=== PATIENT | female | born 1985 | race Caucasian/White ===

== ENCOUNTER → 2017-05-09 | Outpatient (REF) | payer SELFPAY ==
[2017-05-09 18:37] LABS: MEAN CORPUSCULAR HEMOGLOBIN 30.5 pg (27.0-33.0); MEAN CORPUSCULAR HGB CONC 35.4 g/dl (32.0-36.5); MEAN CORPUSCULAR VOLUME 86.4 fl (80.0-96.0); PLATELET COUNT, AUTOMATED 363 10^3/uL (150-450); RED CELL DISTRIBUTION WIDTH 11.8 % (11.5-14.5); WHITE BLOOD COUNT 10.5 10^3/uL (4.0-10.0)
[2017-05-09 19:17] LABS: HCG, SERUM QUANTITATIVE 34042 MIU/ML
[2017-05-11 10:27] LABS: HBsAg Prenatal NEGATIVE (NEGATIVE)
== END ==
LOC: M LAB REF 16:41
DX: O36.80X0 Pregnancy with inconclusive fetal viability, not applicable or unspecified (principal)

== ENCOUNTER → 2017-10-02 | Outpatient (CLI) | payer OTHER ==
[2017-10-02 14:22] LABS: HEMATOCRIT 32.8 % (36.0-47.0); HEMOGLOBIN 11.1 g/dl (12.0-15.5); MEAN CORPUSCULAR HEMOGLOBIN 31.2 pg (27.0-33.0); MEAN CORPUSCULAR HGB CONC 33.8 g/dl (32.0-36.5); MEAN CORPUSCULAR VOLUME 92.1 fl (80.0-96.0); PLATELET COUNT, AUTOMATED 285 10^3/uL (150-450); RED BLOOD COUNT 3.56 10^6/uL (4.00-5.40); RED CELL DISTRIBUTION WIDTH 13.1 % (11.5-14.5); WHITE BLOOD COUNT 10.6 10^3/uL (4.0-10.0)
[2017-10-02 15:25] LABS: GLUCOSE CHALLENGE TEST 1 HOUR 154 MG/DL (LESS THAN 140)
== END ==
LOC: M LAB 12:41
DX: Z34.02 Encounter for supervision of normal first pregnancy, second trimester (principal); Z3A.00 Weeks of gestation of pregnancy not specified
CPT/HCPCS: 82950

== ENCOUNTER → 2017-10-04 | Outpatient (CLI) | payer OTHER ==
[2017-10-04 08:43] LABS: GLUCOSE, FASTING 83 MG/DL (LESS THAN 95)
[2017-10-04 10:05] LABS: 1 HR GLUCOSE 123 MG/DL (LESS THAN 180)
[2017-10-04 10:49] LABS: 2 HR GLUCOSE 138 MG/DL (LESS THAN 155)
[2017-10-04 11:57] LABS: 3 HR GLUCOSE 96 MG/DL (LESS THAN 140)
== END ==
LOC: M LAB 07:39
DX: Z34.02 Encounter for supervision of normal first pregnancy, second trimester (principal)

== ENCOUNTER → 2017-11-27 | Outpatient (REF) | payer OTHER | LOC: M LAB REF 17:14 | DX: Z34.03 Encounter for supervision of normal first pregnancy, third trimester (principal); Z3A.00 Weeks of gestation of pregnancy not specified ==

== ENCOUNTER 2017-12-30 02:38 | Inpatient (IN) | payer OTHER ==
[2017-12-30 04:34] LABS: HEMATOCRIT 32.1 % (36.0-47.0); HEMOGLOBIN 10.8 g/dl (12.0-15.5); MEAN CORPUSCULAR HEMOGLOBIN 29.8 pg (27.0-33.0); MEAN CORPUSCULAR HGB CONC 33.6 g/dl (32.0-36.5); MEAN CORPUSCULAR VOLUME 88.7 fl (80.0-96.0); PLATELET COUNT, AUTOMATED 204 10^3/uL (150-450); RED BLOOD COUNT 3.62 10^6/uL (4.00-5.40); RED CELL DISTRIBUTION WIDTH 14.7 % (11.5-14.5); WHITE BLOOD COUNT 10.6 10^3/uL (4.0-10.0)
[2017-12-30] MEDS: LR 1,000 ML IV ×3 (05:46→15:27)
[2017-12-30] MEDS ORDERED: FENTANYL 2MCG/ML ROPIVACAINE 0.2% IN 0.9% NACL 200ML IVBAG As Ordered (05:58)
[2017-12-30] MEDS ORDERED: NALOXONE INJ 0.4 MG/1 ML VIAL (J2310) IV (07:45)
[2017-12-30] MEDS ORDERED: ePHEDrine SULFATE 25 MG/5 ML(5MG/ML) SYRINGE IV (07:45)
[2017-12-30] MEDS ORDERED: diphenhydrAMINE INJ 50MG/ML VIAL (J1200) IV (07:45)
[2017-12-30] MEDS ORDERED: LACTATED RINGER'S 1000 ML IV (07:45)
[2017-12-30] MEDS ORDERED: FENTANYL/ROPIVACAINE/NACL BAG 200 ML EPIDURAL (07:45)
[2017-12-30] MEDS ORDERED: EPIDURAL/PCA KEYS XX (07:45)
[2017-12-30] MEDS ORDERED: EPIDURAL COMMENT XX (07:45)
[2017-12-30] MEDS ORDERED: REFRIGERATOR IV KEYS XX (07:45)
[2017-12-30] MEDS: OXYTOCIN DRIP 30 UNITS in APPROPRIATE DILUENT 1 EA IV (10:06)
[2017-12-30] MEDS: ONDANSETRON 4MG/2ML VIAL (J2405) IV (11:53)
[2017-12-30] MEDS ORDERED: ACETAMINOPHEN 500 MG TAB PO (20:30)
[2017-12-30] MEDS: miSOPROStol 200 MCG TAB (S0191) PR (22:00)
[2017-12-30] MEDS ORDERED: MOM 30ML SUSPENSION UDC PO (22:00)
[2017-12-30] MEDS ORDERED: DOCUSATE SODIUM 100 MG CAP PO (22:00)
[2017-12-30] MEDS ORDERED: RHOGAM 300 MCG (1500 IU) INJ (J2790) IM (22:00)
[2017-12-30] MEDS: LIDOCAINE 1% MDV 20ML VIAL INFIL (22:00)
[2017-12-30] MEDS ORDERED: ANUSOL HC CREAM 30GM TOP (22:00)
[2017-12-30] MEDS ORDERED: MEASLES,MUMPS,RUBELLA VACCINE INJ (MMR-II) (90707) SC (22:00)
[2017-12-30] MEDS: METHYLERGONOVINE MALEATE 0.2 MG TAB PO (22:31)
[2017-12-31] MEDS: IBUPROFEN 100 MG/5 ML SUSP UDC DYE FREE PO ×3 (00:08→21:45)
[2017-12-31] MEDS ORDERED: PILL CRUSHER/CUTTER 1 EACH XX (04:30)
[2017-12-31] MEDS: METHYLERGONOVINE MALEATE 0.2 MG TAB PO ×3 (04:56→17:06)
[2017-12-31] MEDS: DIBUCAINE 1% OINTMENT 30GM TOP (04:56)
[2017-12-31] MEDS: ACETAMINOPHEN 325 MG/10.15 ML UDC PO (05:10)
[2017-12-31] MEDS: PRENATAL VITAMINS CHEWABLE TABLET PO (09:25)
[2017-12-31] MEDS ORDERED: METHYLERGONOVINE MALEATE 0.2 MG TAB PO (23:00)
[2018-01-01] MEDS: PRENATAL VITAMINS CHEWABLE TABLET PO (07:16)
== END 2018-01-01 11:05 | disposition home or self-care (01) | DRG 775 ==
LOC: M LDO 02:38 → M LDI 03:56 → M OBS 23:23
PROVIDERS: Specialist
PROC: 10E0XZZ Delivery of Products of Conception, External Approach (ICD-10-PCS; principal; 2017-12-30)
PROC: 0KQM0ZZ Repair Perineum Muscle, Open Approach (ICD-10-PCS; 2017-12-30)
PROC: 10907ZC Drainage of Amniotic Fluid, Therapeutic from Products of Conception, Via Natural or Artificial Opening (ICD-10-PCS; 2017-12-30)
DX: O48.0 Post-term pregnancy (principal); Z37.0 Single live birth; Z3A.40 40 weeks gestation of pregnancy; O70.1 Second degree perineal laceration during delivery; O77.0 Labor and delivery complicated by meconium in amniotic fluid

== ENCOUNTER → 2018-09-23 | Outpatient (CLI) | payer OTHER ==
[~2018-09-23] MED LIST: MOTR200T44 PO; PRENTAB9 PO; TYLE160S15 PO
--- NOTE | 2018-09-23 18:48 | ECGEPIP ---
Stationary ECG Study [facility] Test Date: 2018-09-23 Pat Name: AURORA BROWN Department: Room: - Gender: [employer]: ZEINA : 1985 Requested By: ANTONIO HUIZAR Order Number: [id number] Reading MD: Baltazar Bartholomew Measurements Intervals [place] Rate: 78 P: 29 NM: 132 QRS: 51 QRSD: 74 T: 27 QT: 367 QTc: 419 Interpretive Statements SINUS RHYTHM NO PRIOR Electronically Signed On 09-23-2018 18:48:00 EDT by Baltazar Bartholomew
--- NOTE | 2018-09-24 02:25 | REP ---
Clinical: Allergic rhinitis. Chest pain . Comparison: None . Technique: PA and lateral. Findings: The mediastinum and cardiac silhouette are normal. The lung patrick are clear and without acute consolidation, effusion, or pneumothorax. The skeletal structures are intact and normal. Impression: 1. No acute cardiopulmonary process. Electronically Signed by Rico Wilson MD 09/24/2018 02:17 A
== END ==
LOC: M LAB 10:12
PROVIDERS: ATTEND Family Medicine
DX: J30.9 Allergic rhinitis, unspecified (principal)